=== PATIENT | male | born 1950 | race Caucasian/White ===

== ENCOUNTER → 2018-11-29 | Outpatient (CLI) | payer MEDICARE ==
--- NOTE | 2018-11-29 14:15 | RAD ---
Examination: RENAL COMPLETE BILATERAL History: Renal cyst Comparison/Correlation: None Findings: Right kidney measures 8.7 cm x 4.6 x 5.2 cm. At the superior pole, there is a cyst measuring 2.9 cm x 2.3 cm x 3.4 cm. Internal echoes are noted within it. It has a mildly lobulated contour. Left kidney measures 8.6 cm x 4.8 cm x 5 cm. At its superior pole, there is a complex cyst measuring 1.8 cm x 1.8 cm x 1.4 cm. At the interpolar region, there is a complex cyst measuring 1.6 cm x 1.7 cm x 2.2 cm. Internal echoes are evident. No flow identified to involve the cysts. Enlarged prostate gland is present with a volume of 75 cc. Bilateral urinary bladder jets are seen. Urinary bladder is unremarkable. Abdominal aorta and inferior vena cava are unremarkable. Impression: Bilateral complex renal cysts are present. Interval follow-up MRI or CT of the kidneys without and with contrast is recommended for more definitive characterization to exclude mass components.. Electronically signed by: Gadiel Anderson MD (11/29/2018 2:12 PM) [facility]
== END | disposition home or self-care (01) ==
LOC: US 12:55
PROVIDERS: ATTEND Family Medicine
DX: N28.1 Cyst of kidney, acquired (principal); N40.0 Benign prostatic hyperplasia without lower urinary tract symptoms
CPT/HCPCS: 76770

== ENCOUNTER → 2018-12-06 | Outpatient (CLI) | payer MEDICARE ==
[~2018-12-06] MED LIST: GADOTERATE 7.5 MMOL/15ML VIAL. IVP ONE; IRBE300T3 PO; PRAV40TA2 PO
--- NOTE | 2018-12-06 10:42 | KCIC ---
EYE FOR FOREIGN BODY History: MRI clearance. Previous metal in eyes. Comparison: None. Findings: No metallic foreign body within the orbital regions. Dental amalgam. Normal alignment. No definite fracture. Soft tissues unremarkable. Impression: 1. No metallic foreign body within the orbital regions. Electronically signed by: Delroy Alvarado DO (12/06/2018 10:39 AM) [id number]
--- NOTE | 2018-12-06 13:49 | KCIC ---
Indication: Renal lesion seen on ultrasound. TECHNIQUE: Multiplanar multisequence MRI of the abdomen without and with IV contrast. COMPARISON: Ultrasound from 11/29. FINDINGS: Heart is normal in size. No pericardial or pleural effusion. No hepatic steatosis. Liver is normal in morphology without focal lesion. No intra or extrahepatic biliary duct dilation. Gallbladder is surgically absent. Spleen is unenlarged and shows no focal lesion. Main pancreatic duct is within normal limits. No pancreatic or peripancreatic edema. Intrinsic T1 signal is preserved in the pancreas. No focal pancreatic lesion. Adrenal glands demonstrate no nodularity. No hydronephrosis. Bilateral high intensity T2/low intensity T1 nonenhancing lesions are seen in the kidneys, the largest on the right side measuring 2.7 x 2.5 cm and on the left side measuring 2.2 x 1.5 cm. No solid enhancing renal mass. No enlarged retroperitoneal lymph nodes. No enhancing bone lesion. Incidental note made of retroaortic left renal vein. IMPRESSION: Bilateral simple renal cysts. Electronically signed by: Abner Ledezma DO (12/06/2018 1:47 PM) [facility]
== END | disposition home or self-care (01) ==
LOC: KCIC MRI 09:57
PROVIDERS: ATTEND Family Medicine
DX: N28.1 Cyst of kidney, acquired (principal); N28.89 Other specified disorders of kidney and ureter; Z90.49 Acquired absence of other specified parts of digestive tract
CPT/HCPCS: 70030; 74183; A9575

== ENCOUNTER → 2020-02-21 | Outpatient (CLI) | payer MEDICARE ==
[~2020-02-21] MED LIST changes: -GADOTERATE 7.5 MMOL/15ML VIAL. IVP ONE; +IRBE300T23 PO; -IRBE300T3 PO
--- NOTE | 2020-02-21 12:17 | KCIC ---
L-spine 3 views INDICATION: Low back pain COMPARISON: Abdominal MRI 12/06/2018. FINDINGS: 5 lumbar type vertebrae. Standing AP and lateral views of the lumbar spine as well as a coned-down lateral view show mild leftward convexity scoliosis of the lumbar spine apex at L1 with no listhesis on the lateral view. The vertebral body heights are preserved. The bones are mildly demineralized. No acute fracture or aggressive osseous lesions are seen. The discs show minimal narrowing at multiple levels. Minimal facet degenerative changes also noted at L4-L5 and L5-S1. No significant central canal or bony foraminal stenosis is seen in the visualized images. Soft tissues show arterial calcifications in cholecystectomy clips. Visualized sacroiliac joints are unremarkable. IMPRESSION: Lumbar spinal degenerative spondylosis at multiple levels in the disks and facet joints without fracture or malalignment. No aggressive osseous lesions seen. Electronically signed by: Chaya Fernandez MD (02/21/2020 12:14 PM) [id number]
== END | disposition home or self-care (01) ==
LOC: KCIC 10:43
PROVIDERS: ATTEND Family Medicine
DX: M47.817 Spondylosis without myelopathy or radiculopathy, lumbosacral region (principal); M43.17 Spondylolisthesis, lumbosacral region; M41.87 Other forms of scoliosis, lumbosacral region
CPT/HCPCS: 72100

== ENCOUNTER → 2020-09-05 | Outpatient (CLI) | payer MEDICARE ==
--- NOTE | 2020-09-05 12:57 | RAD ---
CT HEAD WITHOUT CONTRAST 09/05/2020 9:36 AM Indication: Reason: HEADACHE / Spl. Instructions: / History: Comparison: None available Procedure: Multidetector CT imaging of the head was performed without the administration of contrast. Findings: There is no evidence of acute intracranial hemorrhage. There is no evidence of acute territ orial infarction. Please note that CT is limited for evaluation of acute ischemia. No mass effect or midline shift is identified . The ventricles and basilar cisterns have an appropriate appearance. No abnormal extra-axial fluid collections are seen. No acute osseous changes are identified. Impression: No evidence of acute intracranial abnormality CT DOSING PQRS STATEMENT: One or more of the following individualized dose reduction techniques were utilized for this examinat ion: 1. Automated exposure control 2. Adjustment of the mA and/or kV according to patient size 3. Use of iterative reconstruction technique Electronically signed by: Eris Stinson MD (09/05/2020 12:54 PM) [id number]
--- NOTE | 2020-09-05 13:16 | RAD ---
CT of the abdomen and pelvis without contrast. 09/05/2020 9:36 AM Indication: Reason: RENAL MASS / Spl. Instructions: / History: Comparison Study: MRI of the abdomen December 06, 2018. Technique: Multidetector CT imaging of the abdomen pelvis is obtained without administration of contr ast. Findings: The visualized bilateral lung bases are clear. Prior cholecystectomy noted. The liver is otherwise unremarkable. Spleen is unremarkable. Adrenal gla nds are within normal limits. Pancreas is unremarkable. Bilateral renal cysts are again noted, with an appearance similar to comparison study. No hydronephro sis or nephrolithiasis is seen. In the right renal hilum there is a ovoid mass measuring 2.4 cm x 1.4 cm x 1.6 cm, with an area of pe ripheral curvilinear calcification concerning for a renal artery aneurysm. Evaluation is limited with out contrast. There is no evidence of bowel obstruction. No acute inflammatory change involving the bowel is identi fied. Bladder is predominantly decompressed but otherwise unremarkable. The prostate is enlarged and projects into the posterior bladder. No acute osseous changes are identified IMPRESSION: 1. 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 Recommend CT angiography for better characterization. Though d irect comparison is somewhat limited, the size of the aneurysm appears to be grossly similar to that from MRI exam from November 2018. Recommend evaluation for surveillance versus endovascular /surgical rep air given threshold for intervention varies by institution ranging between 2 and 3 cm in size. 2. Prostatome[address]aly CT DOSING PQRS STATEMENT: One or more of the following individualized dose reduction techniques were utilized for this examinat ion: 1. Automated exposure control 2. Adjustment of the mA and/or kV according to patient size 3. Use of iterative reconstruction technique Electronically signed by: Eris Stinson MD (09/05/2020 1:13 PM) [id number]
== END ==
LOC: CT 09:37
PROVIDERS: ATTEND Family Medicine
DX: N40.0 Benign prostatic hyperplasia without lower urinary tract symptoms (principal); I72.2 Aneurysm of renal artery; N28.1 Cyst of kidney, acquired; R51.9 Headache, unspecified
CPT/HCPCS: 70450; 74176

== ENCOUNTER → 2020-09-26 | Outpatient (CLI) | payer MEDICARE ==
[~2020-09-26] MED LIST changes: +CONTRAST GIVEN. MC PRN; +IOHEXOL 350 MG/ML 100 ML VIAL. IV ONE
[2020-09-26 09:09] LABS: CREATININE 1.1 mg/dL (0.7-1.3); GFR 66.2
--- NOTE | 2020-09-26 11:09 | RAD ---
CT angiography of the abdomen and pelvis 09/26/2020 INDICATION: Right renal artery aneurysm. COMPARISON STUDY: CT of the abdomen and pelvis without contrast September 05, 2020 TECHNIQUE: Multidetector CT imaging of the abdomen was performed following the administration of IV c ontrast. 3-D reconstructions of abdominal vasculature were created on an independent workstation and reviewed. FINDINGS: Visualized lung bases demonstrate no acute abnormality. There is a 2.4 cm right renal arter y aneurysm involving the distal main right renal artery extending to the bifurcation of the anterior and posterior divisions. Essentially the anterior posterior divisions as well as branch vessels suppl uriel superior and inferior portions of the kidney arise directly from the aneurysm itself. The right main renal artery appears to be relatively small in caliber measuring approximately 3 to 4 mm in diam eter. The main renal artery is patent. Visualized descending thoracic aorta is unremarkable. Celiac artery is patent. The left renal artery is patent. 50% narrowing of the SMA is stenotic at its origin. Infrarenal abdominal aorta is unremark able without evidence of aneurysm or dissection. A retroaortic left renal vein noted. Liver is unremarkable. Cholecystectomy noted. Renal cysts noted bilaterally. Spleen is unremarkable. Adrenal glands are unremarkable. Pancreas is unremarkable. No evidence of bowel obstruction is identi fied. No gross pneumoperitoneum is noted. No acute osseous changes are seen. 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 Given aneurysm morphology endovascular intervention l ikely necessitates devascularization of the majority of the right kidney. Other options include imagi ng surveillance, with follow-up CTA in 6 months, or surgical intervention. CT DOSING PQRS STATEMENT: One or more of the following individualized dose reduction techniques were utilized for this examinat ion: 1. Automated exposure control 2. Adjustment of the mA and/or kV according to patient size 3. Use of iterative reconstruction technique Electronically signed by: Eris Stinson MD (09/26/2020 11:07 AM) [id number]
== END ==
LOC: CT 08:45
PROVIDERS: ATTEND Family Medicine
DX: I72.2 Aneurysm of renal artery (principal); Z90.49 Acquired absence of other specified parts of digestive tract
CPT/HCPCS: 36415; 74175; 82565; 84520; Q9967